=== PATIENT | male | born 1970 | race African-American/Black ===

== ENCOUNTER 2020-07-22 05:07 | Day surgery (SDC) | payer OTHER ==
[2020-07-21 08:45] VITALS: BMI 28.3
[2020-07-22] MEDS ORDERED: MIDAZOLAM HCL 2 MG/2 ML SINGLE DOSE VIAL ONE (10:28)
[2020-07-22] MEDS ORDERED: PROPOFOL 20 ML ONE (10:28)
[2020-07-22] MEDS ORDERED: BUPIVACAINE HCL/PF 0.25% (2.5MG/ML) 10 ML VIAL ONE (10:29)
--- NOTE | 2020-07-22 10:39 | HP ---
History & Physical Update - History History: No Change - Physical Physical: No Change - Assessment Assessment: No Change - Plan Plan: No Change
--- NOTE | 2020-07-22 10:41 | OP ---
Operative Note - Note: Operative Date: 07/22/20 Pre-Operative Diagnosis: phimosis Operation: circumcision Findings: phimosis Surgeon: Minor Wilder Anesthesiologist/DIGITAL ARCHIVIST: Ramos Clifford Anesthesia: General, Local Estimated Blood Loss (mls): 0 Operative Report Dictated: Yes
[2020-07-22] MEDS ORDERED: BUPIVACAINE HCL 100 ML ONE (10:42)
[2020-07-22] MEDS ORDERED: BACITRACIN 15 GM TUBE TOPICAL OINTMENT ONE (10:51)
[2020-07-22] MEDS ORDERED: ceFAZolin SODIUM 1 GM VIAL ONE (10:57)
[2020-07-22] MEDS ORDERED: ALBUTEROL SO4 HFA INHALER IH ONE (11:21)
[2020-07-22 14:16] VITALS: BP 124/83; PULSE 80; TEMP 97.1
== END 2020-07-22 14:40 | disposition home or self-care (01) ==
LOC: JASU-SURG 05:07 → EDBD 13:30 → JASU-SURG 14:40
PROVIDERS: ATTEND Urology
PROC: 0VTTXZZ Resection of Prepuce, External Approach (ICD-10-PCS; principal; 2020-07-22)
DX: N47.1 Phimosis (principal)
CPT/HCPCS: 94760